=== PATIENT | female | born 1980 | race Two or more races ===

== ENCOUNTER 2024-12-21 10:10 | Day surgery (SDC) | payer MEDICAID, SELFPAY ==
[2024-12-20 11:41] LABS: HCG Qualitative,Urine Negative
[2024-12-21] VITALS (13 sets, daily range): BP systolic 125–144; BP diastolic 70–91; PULSE 61–85; RESP 14–21; TEMP 36.3–36.6; O2SAT 95–100; BMI 29.2
--- NOTE | 2024-12-21 14:40 | SUR.PREOP ---
per Dr. Gray, he does not want any labs or ekg ordered on the patient today.
[2024-12-21] MEDS: MIDAZOLAM INJ 1 MG/ML VIAL 2 ML (ASD USE ONLY) 2 MG IV (16:07)
[2024-12-21] MEDS: fentaNYL CIT INJ 50 mCg/ML AMP 2ML (ASD USE ONLY) IV (16:07)
[2024-12-21] MEDS: RINGERS LACTATED 1000 ML 1,000 ML 60 ML IV (16:07)
[2024-12-21] MEDS: DiphenhydrAMINE INJ 50 MG/ML VIAL 25 MG IV (16:08)
[2024-12-21] MEDS: MEPERIDINE INJ 25 MG/ML VIAL (ASD USE ONLY) IV (16:10)
== END 2024-12-21 17:07 | disposition home or self-care (01) ==
PROVIDERS: PCP Registered Nurse; Referring Provider Specialist; Visit Provider Specialist
PROC: 0DBE8ZX Excision of Large Intestine, Via Natural or Artificial Opening Endoscopic, Diagnostic (ICD-10-PCS; CPT 45380; principal; 2024-12-21 13:30)
DX: Z12.11 Encounter for screening for malignant neoplasm of colon (principal); K52.9 Noninfective gastroenteritis and colitis, unspecified; K60.2 Anal fissure, unspecified; K64.9 Unspecified hemorrhoids
CPT/HCPCS: 45380; 81025; A4649; J1200; J2175; J2250; J3010; J7120